=== PATIENT | female | born 1975 | race African-American/Black ===

== ENCOUNTER 2022-05-09 06:02 | Inpatient (IN) | payer OTHER ==
[~2022-05-09] VITALS: Ht 172.7 cm; Wt 47.9 kg
[~2022-05-09 06:02] MED LIST: AMLO-257 PO; AMLO-258 PO; ATOR20TA86 PO; GLIP5TAB12 PO
[2022-05-09 07:02] LABS: BASOPHILS % (AUTO) 0.6 % (0.0-2.0); EOSINOPHILS % (AUTO) 1.3 % (1.0-6.0); HEMATOCRIT 44.6 % (36-46); HEMOGLOBIN 15.4 g/dL (12.0-16.0); LYMPHOCYTES # (AUTO) 1.9 K/uL (1.0-4.8); LYMPHOCYTES % (AUTO) 27.8 % (22.0-44.0); MEAN CORPUSCULAR HGB CONC 34.5 G/dL (31.0-37.0); MEAN CORPUSCULAR VOLUME 90 fL (80-100); MONOCYTES # (AUTO) 0.5 K/uL (0.1-1.0); MONOCYTES % (AUTO) 7.6 % (2.0-9.0); NEUTROPHILS # (AUTO) 4.2 K/uL (1.8-7.7); NEUTROPHILS % (AUTO) 62.7 % (40.0-70.0); PLATELET COUNT (AUTO) 277 K/uL (150-450); RED BLOOD CELL COUNT(AUTO) 4.98 MIL/uL (4.00-5.20); RED CELL DISTRIBUTION WIDTH 13.9 % (11.5-14.5)
[2022-05-09 07:06] LABS: COVID AG,FIA SOURCE NASAL SWAB
[2022-05-09 07:14] LABS: CREATININE 1.34 mg/dL (0.60-1.30); POTASSIUM 3.8 mmol/L (3.5-5.1)
[2022-05-09 07:15] LABS: CALCIUM, TOTAL 9.9 mg/dL (8.8-10.5)
[2022-05-09 07:21] LABS: ALBUMIN 3.9 g/dL (3.4-5.0); BILIRUBIN,TOTAL 0.5 mg/dL (0.1-1.0); TOTAL PROTEIN, SERUM 8.1 g/dL (6.4-8.2)
[2022-05-09 07:37] LABS: LACTIC ACID 0.9 mmol/L (0.4-2.0)
[2022-05-09 07:42] LABS: AMMONIA 10 umol/L (11-32)
[2022-05-09] MEDS ORDERED: DILTIAZEM HCL 5 MG/ML 5 ML VIAL IVP ONE (10:15)
[2022-05-09 10:26] LABS: APPEARANCE,URINE CLEAR (CLEAR); BILIRUBIN,URINE NEGATIVE (NEGATIVE); GLUCOSE, URINE (UA) 150-200 mg/dL (NEGATIVE); LEUKOCYTE ESTERASE ,URINE NEGATIVE (NEGATIVE); NITRATE,URINE NEGATIVE (NEGATIVE); OCCULT BLOOD,URINE NEGATIVE (NEGATIVE); PROTEIN,URINE 300-600,SEE CONFIRM mg/dL (NEGATIVE); SPECIFIC GRAVITIY, URINE 1.029 (1.003-1.030)
[2022-05-09 10:30] LABS: AMPHET/METH SCREEN,URINE NEGATIVE (NEGATIVE); BARBITURATE SCREEN, URINE NEGATIVE (NEGATIVE); BENZODIAZEPINES SCREEN,URINE NEGATIVE (NEGATIVE); CANNABINOID SCREEN,URINE NEGATIVE (NEGATIVE); COCAINE SCREEN,URINE POSITIVE (NEGATIVE); METHADONE SCREEN, URINE NEGATIVE (NEGATIVE); OPIATE SCREEN,URINE NEGATIVE (NEGATIVE)
[2022-05-09 10:31] LABS: BACTERIA,URINE None Seen /HPF (None Seen); PHENCYCLIDINE SCREEN,URINE NEGATIVE (NEGATIVE); RBC,URINE 0-2 /HPF (0-2); SQUAMOUS EPITHELIAL CELL,UR Rare /LPF (None Seen); SULFOSALICYLIC ACID,URINE 3+ (Negative); WBC,URINE 0-2 /HPF (0-5)
[2022-05-09] MEDS ORDERED: ETOMIDATE 2 MG/ML 10 ML VIAL ONE (10:52)
[2022-05-09] MEDS ORDERED: ROCURONIUM BROMIDE 10 MG/ML 5 ML VIAL ONE (10:53)
[2022-05-09] MEDS ORDERED: PROPOFOL 1000 MG/ISO-OSM 100 ML ONE (11:11)
[2022-05-09] MEDS ORDERED: LevETIRAcetam 1,000 MG in DEXTROSE 5%-WATER 100 ML IV ONE (11:15)
[2022-05-09] MEDS: PROPOFOL 1000 MG/ISO-OSM 100 ML IV PRN ×2 (11:30→20:27)
[2022-05-09] MEDS ORDERED: NiCARDipine HCL 25 MG in DEXTROSE 5%-WATER 240 ML IV PRN (11:45)
[2022-05-09 14:14] LABS: ABG BASE EXCESS 1.8 mmol/L (-2.0-3.0); ABG CARBOXYHEMOGLOBIN 0.7 % (0.0-1.5); ABG HCO3 25.4 mmol/L (22.0-26.0); ABG METHEMOGLOBIN 0.2 % (0.0-1.5); ABG OXYGEN SATURATION 96.4 % (95.0-98.0); ABG OXYHEMOGLOBIN 95.5 % (94.0-100.0); ABG PCO2 46 mmHg (35-45); ABG PH 7.388 (7.35-7.450); ABG TOTAL HEMOGLOBIN 17.1 G/dL (12.0-18.0); PO2, ARTERIAL BG 83.4 mmHg (88.0-96.0); SOURCE, BLOOD GAS ARTERIAL; TEMPERATURE, FAHRENHEIT, BG 97.3 FAHREN (96.0-98.6)
[2022-05-09 14:15] LABS: ABG A-A DIFF O2 585.9 mmHg (10-20.0); O2 DEVICE,BLOOD GAS VENTILATOR (ROOM AIR); SITE, BLOOD GAS RT RADIAL; VT, ABG 450 ml
[2022-05-09 14:16] LABS: PEEP,BG 5 cm H2O; SPONTANEOUS VT, BG 446 ml
[2022-05-09] MEDS ORDERED: PIPERACILLIN/TAZO 3.375 GM/D5W 50 ML IV ONE (15:30)
[2022-05-09] MEDS ORDERED: SODIUM CHLORIDE 0.45% 1,000 ML IV ONE (16:00)
[2022-05-09] MEDS ORDERED: LEVE500T20 PO (16:02)
[2022-05-09] MEDS ORDERED: SERT-438 PO (16:02)
[2022-05-09] MEDS ORDERED: METF-1211 PO (16:02)
[2022-05-09] MEDS ORDERED: ALBUTEROL SULFATE 2.5 MG/0.5 ML NEB SOLUTION NEB PRN (17:15)
[2022-05-09] MEDS ORDERED: MAGNESIUM HYDROXIDE SUSPENSION 30 ML UDCUP GT PRN (17:15)
[2022-05-09] MEDS ORDERED: BISACODYL 10 MG RECTAL RECTAL SUPPOSITORY PR PRN (17:15)
[2022-05-09] MEDS ORDERED: IPRATROPIUM BROMIDE 0.5 MG/2.5 ML NEB SOLUTION NEB PRN (17:15)
[2022-05-09 20:00] VITALS: BP_SYST 111; BP_SYST 138; BP_DIAS 104; BP_DIAS 74
[2022-05-09] MEDS: PIPERACILLIN/TAZO 3.375 GM/D5W 50 ML IV SCH (21:35)
[2022-05-09] MEDS: DOCUSATE SODIUM 100 MG/10 ML LIQUID UDCUP GT SCH (21:35)
[2022-05-09] MEDS: ETHYL ALCOHOL 62% ANTISEPTIC NASAL SANITIZER 0.6 ML AMPUL NASAL SCH (21:35)
[2022-05-09] MEDS: ATORVASTATIN CALCIUM 20 MG TABLET GT SCH (21:36)
[2022-05-09] MEDS ORDERED: SODIUM CHLORIDE 0.9% 250 ML IV ONE (22:09)
[2022-05-10] VITALS: BP 110/70
[2022-05-10] MEDS: HEPARIN SODIUM,PORCINE 5,000 UNITS/ML VIAL SQ SCH ×4 (00:43→23:24)
[2022-05-10] MEDS: PROPOFOL 1000 MG/ISO-OSM 100 ML IV PRN ×4 (01:00→13:22)
[2022-05-10 04:00] VITALS: BP 122/83
[2022-05-10] MEDS: PIPERACILLIN/TAZO 3.375 GM/D5W 50 ML IV SCH ×4 (04:34→22:18)
[2022-05-10 08:00] VITALS: BP 137/95
[2022-05-10] MEDS: AmLODIPine BESYLATE 10 MG TABLET GT SCH (08:19)
[2022-05-10] MEDS: DOCUSATE SODIUM 100 MG/10 ML LIQUID UDCUP GT SCH ×2 (08:19→21:00)
[2022-05-10] MEDS: PANTOPRAZOLE SODIUM 40 MG/VIAL IVP SCH (08:19)
[2022-05-10] MEDS: ETHYL ALCOHOL 62% ANTISEPTIC NASAL SANITIZER 0.6 ML AMPUL NASAL SCH ×2 (08:20→22:18)
[2022-05-10] MEDS: SODIUM CHLORIDE 0.45% 1,000 ML IV SCH ×2 (14:35→23:14)
[2022-05-10 14:40] VITALS: BP 137/85
[2022-05-10 16:00] VITALS: BP 124/87
[2022-05-10 17:13] LABS: ABG BASE EXCESS 1.1 mmol/L (-2.0-3.0); ABG CARBOXYHEMOGLOBIN 0.4 % (0.0-1.5); ABG HCO3 25.9 mmol/L (22.0-26.0); ABG METHEMOGLOBIN 0.3 % (0.0-1.5); ABG OXYGEN CONTENT 21.3 mL/dL (15.0-23.0); ABG OXYGEN SATURATION 98.8 % (95.0-98.0); ABG OXYHEMOGLOBIN 98.1 % (94.0-100.0); ABG PCO2 35 mmHg (35-45); ABG TOTAL HEMOGLOBIN 15.3 G/dL (12.0-18.0); PO2, ARTERIAL BG 137.3 mmHg (88.0-96.0); SOURCE, BLOOD GAS ARTERIAL; TEMPERATURE, FAHRENHEIT, BG 98.6 FAHREN (96.0-98.6)
[2022-05-10 17:15] LABS: SITE, BLOOD GAS LFT RADIAL
[2022-05-10 17:16] LABS: ABG A-A DIFF O2 71.8 mmHg (10-20.0); O2 DEVICE,BLOOD GAS VENTILATOR (ROOM AIR)
[2022-05-10 17:17] LABS: PEEP,BG 5 cm H2O; VT, ABG 450 ml
[2022-05-10 20:00] VITALS: BP 127/88
[2022-05-10] MEDS: ATORVASTATIN CALCIUM 20 MG TABLET GT SCH (21:00)
[2022-05-11] VITALS: BP 127/90
[2022-05-11] MEDS: PIPERACILLIN/TAZO 3.375 GM/D5W 50 ML IV SCH (03:39)
[2022-05-11] MEDS: PROPOFOL 1000 MG/ISO-OSM 100 ML IV PRN ×2 (03:39→06:48)
[2022-05-11 04:00] VITALS: BP 144/91
[2022-05-11 05:53] LABS: BASOPHILS % (AUTO) 0.4 % (0.0-2.0); EOSINOPHILS % (AUTO) 1.1 % (1.0-6.0); HEMATOCRIT 40.7 % (36-46); LYMPHOCYTES # (AUTO) 2.2 K/uL (1.0-4.8); LYMPHOCYTES % (AUTO) 17.7 % (22.0-44.0); MEAN CORPUSCULAR HEMOGLOBIN 30.5 pg (26.0-34.0); MEAN CORPUSCULAR HGB CONC 34.3 G/dL (31.0-37.0); MEAN CORPUSCULAR VOLUME 89 fL (80-100); MONOCYTES # (AUTO) 0.6 K/uL (0.1-1.0); MONOCYTES % (AUTO) 4.9 % (2.0-9.0); NEUTROPHILS # (AUTO) 9.5 K/uL (1.8-7.7); NEUTROPHILS % (AUTO) 75.9 % (40.0-70.0); PLATELET COUNT (AUTO) 266 K/uL (150-450); RED BLOOD CELL COUNT(AUTO) 4.57 MIL/uL (4.00-5.20); RED CELL DISTRIBUTION WIDTH 14.1 % (11.5-14.5)
[2022-05-11 05:54] LABS: CALCIUM, TOTAL 9.3 mg/dL (8.8-10.5); CREATININE 2.71 mg/dL (0.60-1.30); POTASSIUM 3.1 mmol/L (3.5-5.1)
[2022-05-11 08:00] VITALS: BP 142/103
[2022-05-11] MEDS: HEPARIN SODIUM,PORCINE 5,000 UNITS/ML VIAL SQ SCH ×2 (08:51→16:24)
[2022-05-11] MEDS: DOCUSATE SODIUM 100 MG/10 ML LIQUID UDCUP GT SCH ×2 (08:51→21:38)
[2022-05-11] MEDS: AmLODIPine BESYLATE 10 MG TABLET GT SCH (08:52)
[2022-05-11] MEDS: ETHYL ALCOHOL 62% ANTISEPTIC NASAL SANITIZER 0.6 ML AMPUL NASAL SCH ×2 (08:52→21:39)
[2022-05-11] MEDS: PANTOPRAZOLE SODIUM 40 MG/VIAL IVP SCH (08:52)
[2022-05-11] MEDS: SODIUM CHLORIDE 0.45% 1,000 ML IV SCH ×2 (08:54→19:16)
[2022-05-11] MEDS ORDERED: POTASSIUM CHLORIDE 10% 40 MEQ/30 ML LIQUID UDCUP NG ONE (09:15)
[2022-05-11] MEDS: ONDANSETRON HCL 4 MG/2 ML VIAL IVP PRN (09:58)
[2022-05-11] MEDS: DEXMEDETOMIDINE HCL 400 MCG in SODIUM CHLORIDE 0.9% 96 ML IV PRN (10:01)
[2022-05-11] MEDS: PIPERACILLIN SODIUM/TAZOBACTAM 2.25 GM in DEXTROSE 5%-WATER 50 ML IV SCH ×3 (10:16→21:40)
[2022-05-11 12:00] VITALS: BP 134/94
[2022-05-11 16:00] VITALS: BP 121/89
[2022-05-11 20:00] VITALS: BP 109/77
[2022-05-11] MEDS: ATORVASTATIN CALCIUM 20 MG TABLET GT SCH (21:38)
[2022-05-12] VITALS: BP 110/76
[2022-05-12] MEDS: HEPARIN SODIUM,PORCINE 5,000 UNITS/ML VIAL SQ SCH ×4 (00:15→23:59)
[2022-05-12] MEDS: DEXMEDETOMIDINE HCL 400 MCG in SODIUM CHLORIDE 0.9% 96 ML IV PRN ×2 (00:16→17:47)
[2022-05-12 04:00] VITALS: BP 114/79
[2022-05-12] MEDS: PIPERACILLIN SODIUM/TAZOBACTAM 2.25 GM in DEXTROSE 5%-WATER 50 ML IV SCH ×4 (04:11→22:05)
[2022-05-12] MEDS: SODIUM CHLORIDE 0.45% 1,000 ML IV SCH ×2 (05:03→16:06)
[2022-05-12 05:43] LABS: BASOPHILS % (AUTO) 0.4 % (0.0-2.0); EOSINOPHILS % (AUTO) 0.9 % (1.0-6.0); HEMATOCRIT 38.5 % (36-46); HEMOGLOBIN 12.9 g/dL (12.0-16.0); LYMPHOCYTES % (AUTO) 21.9 % (22.0-44.0); MEAN CORPUSCULAR HEMOGLOBIN 30.5 pg (26.0-34.0); MEAN CORPUSCULAR HGB CONC 33.5 G/dL (31.0-37.0); MEAN CORPUSCULAR VOLUME 91 fL (80-100); MONOCYTES # (AUTO) 0.7 K/uL (0.1-1.0); MONOCYTES % (AUTO) 7.6 % (2.0-9.0); NEUTROPHILS # (AUTO) 6.5 K/uL (1.8-7.7); NEUTROPHILS % (AUTO) 69.2 % (40.0-70.0); PLATELET COUNT (AUTO) 213 K/uL (150-450); RED BLOOD CELL COUNT(AUTO) 4.23 MIL/uL (4.00-5.20); RED CELL DISTRIBUTION WIDTH 14.4 % (11.5-14.5)
[2022-05-12 05:47] LABS: CALCIUM, TOTAL 8.8 mg/dL (8.8-10.5); CREATININE 2.57 mg/dL (0.60-1.30); POTASSIUM 3.7 mmol/L (3.5-5.1)
[2022-05-12 08:00] VITALS: BP 109/69
[2022-05-12] MEDS: AmLODIPine BESYLATE 10 MG TABLET GT SCH ×2 (09:00→09:34)
[2022-05-12] MEDS: ETHYL ALCOHOL 62% ANTISEPTIC NASAL SANITIZER 0.6 ML AMPUL NASAL SCH ×2 (09:34→19:54)
[2022-05-12] MEDS: PANTOPRAZOLE SODIUM 40 MG/VIAL IVP SCH (09:34)
[2022-05-12] MEDS: DOCUSATE SODIUM 100 MG/10 ML LIQUID UDCUP GT SCH ×2 (09:34→19:53)
[2022-05-12 12:00] VITALS: BP 125/84
[2022-05-12 16:00] VITALS: BP 139/99
[2022-05-12] MEDS: ATORVASTATIN CALCIUM 20 MG TABLET GT SCH (19:54)
[2022-05-12] MEDS: HydrALAZINE HCL 25 MG TABLET NG SCH (20:14)
[2022-05-12] MEDS: CARVEDILOL 3.125 MG TABLET NG SCH (20:44)
[2022-05-12] MEDS: HydrALAZINE HCL 20 MG/ML VIAL IVP PRN (22:43)
[2022-05-13] VITALS: BP 172/89
[2022-05-13] MEDS: HydrALAZINE HCL 20 MG/ML VIAL IVP PRN ×4 (00:54→21:50)
[2022-05-13] MEDS: SODIUM CHLORIDE 0.45% 1,000 ML IV SCH ×3 (02:02→21:53)
[2022-05-13] MEDS: PIPERACILLIN SODIUM/TAZOBACTAM 2.25 GM in DEXTROSE 5%-WATER 50 ML IV SCH ×4 (03:50→21:56)
[2022-05-13 04:00] VITALS: BP 134/80
[2022-05-13] MEDS: DEXMEDETOMIDINE HCL 400 MCG in SODIUM CHLORIDE 0.9% 96 ML IV PRN (05:54)
[2022-05-13 08:00] VITALS: BP 134/86
[2022-05-13] MEDS: HEPARIN SODIUM,PORCINE 5,000 UNITS/ML VIAL SQ SCH ×2 (08:11→16:47)
[2022-05-13] MEDS: ETHYL ALCOHOL 62% ANTISEPTIC NASAL SANITIZER 0.6 ML AMPUL NASAL SCH ×2 (08:12→21:51)
[2022-05-13] MEDS: DOCUSATE SODIUM 100 MG/10 ML LIQUID UDCUP GT SCH ×2 (08:12→21:51)
[2022-05-13] MEDS: AmLODIPine BESYLATE 10 MG TABLET GT SCH (08:12)
[2022-05-13] MEDS: HydrALAZINE HCL 25 MG TABLET NG SCH ×4 (08:12→21:51)
[2022-05-13] MEDS: CARVEDILOL 3.125 MG TABLET NG SCH ×2 (08:12→21:50)
[2022-05-13] MEDS: METOCLOPRAMIDE HCL 5 MG/ML 2 ML VIAL IVP SCH ×2 (08:58→21:51)
[2022-05-13] MEDS: PANTOPRAZOLE SODIUM 40 MG/VIAL IVP SCH (08:58)
[2022-05-13 12:00] VITALS: BP 123/86
[2022-05-13 12:15] LABS: ABG BASE EXCESS -3.1 mmol/L (-2.0-3.0); ABG CARBOXYHEMOGLOBIN 0.6 % (0.0-1.5); ABG HCO3 22.7 mmol/L (22.0-26.0); ABG METHEMOGLOBIN 0.3 % (0.0-1.5); ABG OXYGEN CONTENT 19.1 mL/dL (15.0-23.0); ABG OXYGEN SATURATION 98.5 % (95.0-98.0); ABG OXYHEMOGLOBIN 97.6 % (94.0-100.0); ABG PCO2 32 mmHg (35-45); ABG PH 7.438 (7.35-7.450); ABG TOTAL HEMOGLOBIN 13.8 G/dL (12.0-18.0); PO2, ARTERIAL BG 121.6 mmHg (88.0-96.0); SOURCE, BLOOD GAS ARTERIAL; TEMPERATURE, FAHRENHEIT, BG 98.5 FAHREN (96.0-98.6)
[2022-05-13 12:18] LABS: O2 DEVICE,BLOOD GAS VENTILATOR (ROOM AIR); SITE, BLOOD GAS LFT RADIAL; VT, ABG 450 ml
[2022-05-13 12:19] LABS: PEEP,BG 5 cm H2O; SPONTANEOUS VT, BG 436 ml
[2022-05-13 16:00] VITALS: BP 152/87
[2022-05-13 20:00] VITALS: BP 137/84
[2022-05-13] MEDS: ATORVASTATIN CALCIUM 20 MG TABLET GT SCH (21:51)
[2022-05-14] VITALS (7 sets, daily range): BP systolic 123–160; BP diastolic 68–98
[2022-05-14] MEDS: HEPARIN SODIUM,PORCINE 5,000 UNITS/ML VIAL SQ SCH ×4 (00:39→23:47)
[2022-05-14] MEDS: PIPERACILLIN SODIUM/TAZOBACTAM 2.25 GM in DEXTROSE 5%-WATER 50 ML IV SCH ×4 (04:29→21:39)
[2022-05-14] MEDS: DEXMEDETOMIDINE HCL 400 MCG in SODIUM CHLORIDE 0.9% 96 ML IV PRN (08:12)
[2022-05-14] MEDS: SODIUM CHLORIDE 0.45% 1,000 ML IV SCH ×2 (09:21→17:06)
[2022-05-14] MEDS: DOCUSATE SODIUM 100 MG/10 ML LIQUID UDCUP GT SCH ×2 (09:21→20:21)
[2022-05-14] MEDS: CARVEDILOL 3.125 MG TABLET NG SCH ×2 (09:22→20:23)
[2022-05-14] MEDS: PANTOPRAZOLE SODIUM 40 MG/VIAL IVP SCH (09:22)
[2022-05-14] MEDS: AmLODIPine BESYLATE 10 MG TABLET GT SCH (09:22)
[2022-05-14] MEDS: HydrALAZINE HCL 25 MG TABLET NG SCH ×4 (09:23→20:21)
[2022-05-14] MEDS: METOCLOPRAMIDE HCL 5 MG/ML 2 ML VIAL IVP SCH ×2 (09:23→20:22)
[2022-05-14] MEDS: ETHYL ALCOHOL 62% ANTISEPTIC NASAL SANITIZER 0.6 ML AMPUL NASAL SCH ×2 (09:23→20:21)
[2022-05-14] MEDS: HydrALAZINE HCL 20 MG/ML VIAL IVP PRN ×2 (13:03→20:22)
[2022-05-14] MEDS: ATORVASTATIN CALCIUM 20 MG TABLET GT SCH (20:21)
[2022-05-14 21:15] LABS: GLUCOSE,POINT OF CARE 158 MG/DL (70-110)
[2022-05-14 21:30] LABS: BASOPHILS % (AUTO) 0.3 % (0.0-2.0); EOSINOPHILS % (AUTO) 0.5 % (1.0-6.0); HEMATOCRIT 34.4 % (36-46); HEMOGLOBIN 11.7 g/dL (12.0-16.0); LYMPHOCYTES # (AUTO) 0.9 K/uL (1.0-4.8); LYMPHOCYTES % (AUTO) 7.2 % (22.0-44.0); MEAN CORPUSCULAR HEMOGLOBIN 30.1 pg (26.0-34.0); MEAN CORPUSCULAR HGB CONC 33.9 G/dL (31.0-37.0); MEAN CORPUSCULAR VOLUME 89 fL (80-100); MONOCYTES % (AUTO) 7.9 % (2.0-9.0); NEUTROPHILS # (AUTO) 10.6 K/uL (1.8-7.7); NEUTROPHILS % (AUTO) 84.1 % (40.0-70.0); PLATELET COUNT (AUTO) 250 K/uL (150-450); RED BLOOD CELL COUNT(AUTO) 3.87 MIL/uL (4.00-5.20); RED CELL DISTRIBUTION WIDTH 13.7 % (11.5-14.5)
[2022-05-15] VITALS: BP 134/81
[2022-05-15 04:00] VITALS: BP 152/98
[2022-05-15] MEDS: HydrALAZINE HCL 20 MG/ML VIAL IVP PRN ×2 (04:15→07:57)
[2022-05-15] MEDS: SODIUM CHLORIDE 0.45% 1,000 ML IV SCH ×3 (04:16→22:42)
[2022-05-15] MEDS: PIPERACILLIN SODIUM/TAZOBACTAM 2.25 GM in DEXTROSE 5%-WATER 50 ML IV SCH ×2 (04:16→10:01)
[2022-05-15] MEDS: DEXMEDETOMIDINE HCL 400 MCG in SODIUM CHLORIDE 0.9% 96 ML IV PRN ×2 (04:46→16:28)
[2022-05-15 05:41] LABS: BASOPHILS % (AUTO) 0.3 % (0.0-2.0); EOSINOPHILS % (AUTO) 0.9 % (1.0-6.0); HEMATOCRIT 34.1 % (36-46); HEMOGLOBIN 11.5 g/dL (12.0-16.0); LYMPHOCYTES # (AUTO) 1.8 K/uL (1.0-4.8); LYMPHOCYTES % (AUTO) 15.4 % (22.0-44.0); MEAN CORPUSCULAR HEMOGLOBIN 30.5 pg (26.0-34.0); MEAN CORPUSCULAR HGB CONC 33.8 G/dL (31.0-37.0); MEAN CORPUSCULAR VOLUME 90 fL (80-100); MONOCYTES # (AUTO) 1.3 K/uL (0.1-1.0); MONOCYTES % (AUTO) 10.6 % (2.0-9.0); NEUTROPHILS # (AUTO) 8.6 K/uL (1.8-7.7); NEUTROPHILS % (AUTO) 72.8 % (40.0-70.0); PLATELET COUNT (AUTO) 268 K/uL (150-450); RED BLOOD CELL COUNT(AUTO) 3.77 MIL/uL (4.00-5.20); RED CELL DISTRIBUTION WIDTH 13.7 % (11.5-14.5)
[2022-05-15 05:46] LABS: CALCIUM, TOTAL 9.3 mg/dL (8.8-10.5); CREATININE 1.3 mg/dL (0.60-1.30); POTASSIUM 3.7 mmol/L (3.5-5.1)
[2022-05-15] MEDS: HEPARIN SODIUM,PORCINE 5,000 UNITS/ML VIAL SQ SCH ×3 (07:31→22:43)
[2022-05-15 08:00] VITALS: BP 149/94
[2022-05-15] MEDS: AmLODIPine BESYLATE 10 MG TABLET GT SCH (09:15)
[2022-05-15] MEDS: ETHYL ALCOHOL 62% ANTISEPTIC NASAL SANITIZER 0.6 ML AMPUL NASAL SCH ×2 (09:15→20:20)
[2022-05-15] MEDS: CARVEDILOL 3.125 MG TABLET NG SCH ×2 (09:15→20:20)
[2022-05-15] MEDS: PANTOPRAZOLE SODIUM 40 MG/VIAL IVP SCH ×2 (09:16→20:19)
[2022-05-15] MEDS: METOCLOPRAMIDE HCL 5 MG/ML 2 ML VIAL IVP SCH ×2 (09:16→20:20)
[2022-05-15] MEDS: HydrALAZINE HCL 25 MG TABLET NG SCH ×4 (10:36→20:20)
[2022-05-15] MEDS: DOCUSATE SODIUM 100 MG/10 ML LIQUID UDCUP GT SCH ×2 (10:36→20:19)
[2022-05-15 12:00] VITALS: BP 122/80
[2022-05-15 16:00] VITALS: BP 113/59
[2022-05-15] MEDS: PIPERACILLIN/TAZO 3.375 GM/D5W 50 ML IV SCH ×2 (16:25→21:43)
[2022-05-15 20:00] VITALS: BP 137/92
[2022-05-15] MEDS: ATORVASTATIN CALCIUM 20 MG TABLET GT SCH (20:19)
[2022-05-16] VITALS: BP_SYST 151; BP_SYST 152; BP_DIAS 110
[2022-05-16] MEDS: DEXMEDETOMIDINE HCL 400 MCG in SODIUM CHLORIDE 0.9% 96 ML IV PRN ×3 (01:18→18:10)
[2022-05-16] MEDS: PIPERACILLIN/TAZO 3.375 GM/D5W 50 ML IV SCH ×4 (03:34→21:42)
[2022-05-16 04:00] VITALS: BP_SYST 144; BP_SYST 146; BP_DIAS 96
[2022-05-16 05:51] LABS: HEMOGLOBIN A1C 6.6 % (3.8-5.6)
[2022-05-16 06:03] LABS: BILIRUBIN,TOTAL 0.3 mg/dL (0.1-1.0); CALCIUM, TOTAL 8.8 mg/dL (8.8-10.5); CREATININE 1.24 mg/dL (0.60-1.30); POTASSIUM 3.3 mmol/L (3.5-5.1); TOTAL PROTEIN, SERUM 5.7 g/dL (6.4-8.2)
[2022-05-16 08:00] VITALS: BP 140/97
[2022-05-16] MEDS: HEPARIN SODIUM,PORCINE 5,000 UNITS/ML VIAL SQ SCH ×2 (08:00→16:00)
[2022-05-16] MEDS: PANTOPRAZOLE SODIUM 40 MG/VIAL IVP SCH ×2 (08:11→20:20)
[2022-05-16] MEDS: AmLODIPine BESYLATE 10 MG TABLET GT SCH (08:12)
[2022-05-16] MEDS: DOCUSATE SODIUM 100 MG/10 ML LIQUID UDCUP GT SCH ×2 (08:12→20:19)
[2022-05-16] MEDS: CARVEDILOL 3.125 MG TABLET NG SCH ×2 (08:12→20:22)
[2022-05-16] MEDS: METOCLOPRAMIDE HCL 5 MG/ML 2 ML VIAL IVP SCH ×2 (08:12→20:19)
[2022-05-16] MEDS: ETHYL ALCOHOL 62% ANTISEPTIC NASAL SANITIZER 0.6 ML AMPUL NASAL SCH ×2 (08:13→20:20)
[2022-05-16] MEDS: HydrALAZINE HCL 25 MG TABLET NG SCH ×5 (08:13→21:47)
[2022-05-16] MEDS: POTASSIUM CHL 10 MEQ/WATER 50 ML IV SCH ×3 (09:33→12:43)
[2022-05-16] MEDS: SODIUM CHLORIDE 0.45% 1,000 ML IV SCH ×2 (09:33→20:19)
[2022-05-16 12:00] VITALS: BP 141/93
[2022-05-16 18:00] VITALS: BP 156/109
[2022-05-16] MEDS: HydrALAZINE HCL 20 MG/ML VIAL IVP PRN (18:10)
[2022-05-16 20:00] VITALS: BP 131/75
[2022-05-16] MEDS: ATORVASTATIN CALCIUM 20 MG TABLET GT SCH (20:20)
[2022-05-16] MEDS: PROPOFOL 1000 MG/ISO-OSM 100 ML IV PRN (21:28)
[2022-05-17] VITALS: BP 138/91
[2022-05-17] MEDS ORDERED: SODIUM CHLORIDE 0.9% 250 ML IV ONE (03:27)
[2022-05-17 04:00] VITALS: BP 145/75
[2022-05-17] MEDS: PIPERACILLIN/TAZO 3.375 GM/D5W 50 ML IV SCH ×4 (04:09→21:07)
[2022-05-17] MEDS: DEXMEDETOMIDINE HCL 400 MCG in SODIUM CHLORIDE 0.9% 96 ML IV PRN ×2 (04:09→23:14)
[2022-05-17 05:15] LABS: BASOPHILS % (AUTO) 0.7 % (0.0-2.0); EOSINOPHILS % (AUTO) 3.7 % (1.0-6.0); HEMATOCRIT 26.1 % (36-46); LYMPHOCYTES # (AUTO) 1.6 K/uL (1.0-4.8); LYMPHOCYTES % (AUTO) 21.8 % (22.0-44.0); MEAN CORPUSCULAR HEMOGLOBIN 30.8 pg (26.0-34.0); MEAN CORPUSCULAR HGB CONC 34.5 G/dL (31.0-37.0); MEAN CORPUSCULAR VOLUME 89 fL (80-100); MONOCYTES # (AUTO) 0.8 K/uL (0.1-1.0); MONOCYTES % (AUTO) 10.9 % (2.0-9.0); NEUTROPHILS # (AUTO) 4.6 K/uL (1.8-7.7); NEUTROPHILS % (AUTO) 62.9 % (40.0-70.0); PLATELET COUNT (AUTO) 173 K/uL (150-450); RED BLOOD CELL COUNT(AUTO) 2.93 MIL/uL (4.00-5.20); RED CELL DISTRIBUTION WIDTH 13.4 % (11.5-14.5)
[2022-05-17] MEDS: SODIUM CHLORIDE 0.45% 1,000 ML IV SCH ×2 (05:28→15:17)
[2022-05-17 05:34] LABS: ALANINE AMINOTRANSFERASE 26 U/L (12-78); ALBUMIN 2.1 g/dL (3.4-5.0); ALKALINE PHOSPHATASE 44 U/L (46-116); ANION GAP 10 mmol/L (8-16); ASPARTATE AMINOTRANSFERASE 29 U/L (15-37); BILIRUBIN,TOTAL 0.4 mg/dL (0.1-1.0); CARBON DIOXIDE 22 mmol/L (22-29); CHLORIDE 104 mmol/L (98-107); CREATININE 0.91 mg/dL (0.60-1.30); GLOMERULAR FILTR. RATE CALC > 60 mL/min (>60); GLUCOSE,RANDOM 152 mg/dL (70-110); POTASSIUM 3.4 mmol/L (3.5-5.1); SODIUM SERUM 136 mmol/L (136-145); TOTAL PROTEIN, SERUM 5.8 g/dL (6.4-8.2); UREA NITROGEN, BLOOD 25 mg/dL (7-18)
[2022-05-17 08:00] VITALS: BP 115/62
[2022-05-17] MEDS: DOCUSATE SODIUM 100 MG/10 ML LIQUID UDCUP GT SCH ×2 (08:19→21:05)
[2022-05-17] MEDS: ETHYL ALCOHOL 62% ANTISEPTIC NASAL SANITIZER 0.6 ML AMPUL NASAL SCH ×2 (08:20→21:06)
[2022-05-17] MEDS: HydrALAZINE HCL 25 MG TABLET NG SCH ×4 (08:20→21:05)
[2022-05-17] MEDS: METOCLOPRAMIDE HCL 5 MG/ML 2 ML VIAL IVP SCH ×2 (08:20→21:05)
[2022-05-17] MEDS: ASPIRIN 81 MG CHEWABLE TABLET PO SCH (08:20)
[2022-05-17] MEDS: HEPARIN SODIUM,PORCINE 5,000 UNITS/ML VIAL SQ SCH ×3 (08:20→15:11)
[2022-05-17] MEDS: AmLODIPine BESYLATE 10 MG TABLET GT SCH (08:20)
[2022-05-17] MEDS: ATORVASTATIN CALCIUM 40 MG TABLET PO SCH (08:20)
[2022-05-17] MEDS: CARVEDILOL 3.125 MG TABLET NG SCH ×2 (08:20→21:06)
[2022-05-17] MEDS: PANTOPRAZOLE SODIUM 40 MG/VIAL IVP SCH ×2 (08:21→21:05)
[2022-05-17] MEDS: HydrALAZINE HCL 20 MG/ML VIAL IVP PRN (11:25)
[2022-05-17 12:00] VITALS: BP 156/90
[2022-05-17] MEDS ORDERED: MAGNESIUM SULFATE 2 GM/WATER 50 ML IV ONE (12:45)
[2022-05-17] MEDS ORDERED: POTASSIUM CHLORIDE 10% 40 MEQ/30 ML LIQUID UDCUP NG ONE (12:45)
[2022-05-17 16:00] VITALS: BP 92/61
[2022-05-17 20:00] VITALS: BP 107/72
[2022-05-18] VITALS: BP 136/87
[2022-05-18] MEDS: SODIUM CHLORIDE 0.45% 1,000 ML IV SCH (02:54)
[2022-05-18 04:00] VITALS: BP 125/75
[2022-05-18] MEDS: PIPERACILLIN/TAZO 3.375 GM/D5W 50 ML IV SCH ×4 (04:26→21:28)
[2022-05-18 05:52] LABS: BASOPHILS % (AUTO) 0.3 % (0.0-2.0); EOSINOPHILS % (AUTO) 3.1 % (1.0-6.0); HEMATOCRIT 25.8 % (36-46); LYMPHOCYTES # (AUTO) 1.4 K/uL (1.0-4.8); LYMPHOCYTES % (AUTO) 16.4 % (22.0-44.0); MEAN CORPUSCULAR HEMOGLOBIN 30.9 pg (26.0-34.0); MEAN CORPUSCULAR HGB CONC 35.1 G/dL (31.0-37.0); MEAN CORPUSCULAR VOLUME 88 fL (80-100); MONOCYTES # (AUTO) 0.6 K/uL (0.1-1.0); MONOCYTES % (AUTO) 7.5 % (2.0-9.0); NEUTROPHILS # (AUTO) 6.2 K/uL (1.8-7.7); NEUTROPHILS % (AUTO) 72.7 % (40.0-70.0); PLATELET COUNT (AUTO) 205 K/uL (150-450); RED BLOOD CELL COUNT(AUTO) 2.93 MIL/uL (4.00-5.20); RED CELL DISTRIBUTION WIDTH 13.6 % (11.5-14.5)
[2022-05-18 06:16] LABS: ALANINE AMINOTRANSFERASE 23 U/L (12-78); ALBUMIN 2.2 g/dL (3.4-5.0); ALKALINE PHOSPHATASE 49 U/L (46-116); ANION GAP 13 mmol/L (8-16); ASPARTATE AMINOTRANSFERASE 20 U/L (15-37); BILIRUBIN,TOTAL 0.3 mg/dL (0.1-1.0); CALCIUM, TOTAL 8.8 mg/dL (8.8-10.5); CARBON DIOXIDE 21 mmol/L (22-29); CHLORIDE 102 mmol/L (98-107); CREATININE 1.04 mg/dL (0.60-1.30); GLUCOSE,RANDOM 158 mg/dL (70-110); PHOSPHORUS 2.4 mg/dL (2.5-4.9); POTASSIUM 3.7 mmol/L (3.5-5.1); SODIUM SERUM 136 mmol/L (136-145); TOTAL PROTEIN, SERUM 5.8 g/dL (6.4-8.2); UREA NITROGEN, BLOOD 19 mg/dL (7-18)
[2022-05-18 06:22] LABS: GLOMERULAR FILTR. RATE CALC > 60 mL/min (>60)
[2022-05-18] MEDS: DEXMEDETOMIDINE HCL 400 MCG in SODIUM CHLORIDE 0.9% 96 ML IV PRN (07:28)
[2022-05-18 08:00] VITALS: BP 138/90
[2022-05-18] MEDS: HEPARIN SODIUM,PORCINE 5,000 UNITS/ML VIAL SQ SCH ×3 (08:00→15:08)
[2022-05-18] MEDS: PANTOPRAZOLE SODIUM 40 MG/VIAL IVP SCH ×2 (09:00→20:32)
[2022-05-18] MEDS: DOCUSATE SODIUM 100 MG/10 ML LIQUID UDCUP GT SCH ×2 (09:22→20:32)
[2022-05-18] MEDS: MAGNESIUM SULFATE 1 GM in DEXTROSE 5%-WATER 50 ML IV SCH (09:22)
[2022-05-18] MEDS: AmLODIPine BESYLATE 10 MG TABLET GT SCH (09:23)
[2022-05-18] MEDS: POTASSIUM CHLORIDE 10% 40 MEQ/30 ML LIQUID UDCUP NG SCH (09:24)
[2022-05-18] MEDS: HydrALAZINE HCL 25 MG TABLET NG SCH ×4 (09:24→20:30)
[2022-05-18] MEDS: ATORVASTATIN CALCIUM 40 MG TABLET PO SCH (09:24)
[2022-05-18] MEDS: CARVEDILOL 3.125 MG TABLET NG SCH ×2 (09:24→20:30)
[2022-05-18] MEDS: METOCLOPRAMIDE HCL 5 MG/ML 2 ML VIAL IVP SCH ×2 (09:25→20:30)
[2022-05-18] MEDS: ASPIRIN 81 MG CHEWABLE TABLET PO SCH (09:25)
[2022-05-18] MEDS: ETHYL ALCOHOL 62% ANTISEPTIC NASAL SANITIZER 0.6 ML AMPUL NASAL SCH ×2 (09:26→20:30)
[2022-05-18] MEDS ORDERED: POTASSIUM PHOS,M-BASIC-D-BASIC 10 MEQ in DEXTROSE 5%-WATER 50 ML IV ONE (10:15)
[2022-05-18 12:00] VITALS: BP 152/86
[2022-05-18 13:18] LABS: ABG BASE EXCESS -4.3 mmol/L (-2.0-3.0); ABG CARBOXYHEMOGLOBIN 0.3 % (0.0-1.5); ABG HCO3 21.4 mmol/L (22.0-26.0); ABG METHEMOGLOBIN 0.3 % (0.0-1.5); ABG OXYGEN CONTENT 14.2 mL/dL (15.0-23.0); ABG OXYGEN SATURATION 98.7 % (95.0-98.0); ABG OXYHEMOGLOBIN 98.1 % (94.0-100.0); ABG PCO2 32 mmHg (35-45); ABG PH 7.415 (7.35-7.450); ABG TOTAL HEMOGLOBIN 10.1 G/dL (12.0-18.0); PO2, ARTERIAL BG 144.6 mmHg (88.0-96.0); SOURCE, BLOOD GAS ARTERIAL; TEMPERATURE, FAHRENHEIT, BG 97.5 FAHREN (96.0-98.6)
[2022-05-18 13:19] LABS: ABG A-A DIFF O2 31.7 mmHg (10-20.0); SITE, BLOOD GAS LFT RADIAL
[2022-05-18 13:20] LABS: O2 DEVICE,BLOOD GAS VENTILATOR (ROOM AIR); VENT MODE, BG Press. Support Vent. (ROOM AIR); VT, ABG 367 ml
[2022-05-18 13:21] LABS: PEEP,BG 5 cm H2O; PRESSURE SUPPORT, BG 8 cm H2O
[2022-05-18] MEDS ORDERED: SODIUM CHLORIDE 0.9% 250 ML IV ONE (14:01)
[2022-05-18 16:00] VITALS: BP 161/91
[2022-05-18] MEDS: HydrALAZINE HCL 20 MG/ML VIAL IVP PRN ×3 (17:54→21:28)
[2022-05-18 20:00] VITALS: BP 214/112
[2022-05-18] MEDS: ONDANSETRON HCL 4 MG/2 ML VIAL IVP PRN (20:52)
[2022-05-18] MEDS: PROPOFOL 1000 MG/ISO-OSM 100 ML IV PRN (21:58)
[2022-05-19] VITALS: BP 150/89
[2022-05-19] MEDS: PROPOFOL 1000 MG/ISO-OSM 100 ML IV PRN ×3 (03:09→23:23)
[2022-05-19 04:00] VITALS: BP 125/75
[2022-05-19] MEDS: PIPERACILLIN/TAZO 3.375 GM/D5W 50 ML IV SCH ×4 (04:01→22:39)
[2022-05-19] MEDS: DEXMEDETOMIDINE HCL 400 MCG in SODIUM CHLORIDE 0.9% 96 ML IV PRN ×2 (04:01→14:14)
[2022-05-19 05:52] LABS: ANION GAP 9 mmol/L (8-16); CALCIUM, TOTAL 9.1 mg/dL (8.8-10.5); CARBON DIOXIDE 25 mmol/L (22-29); CHLORIDE 104 mmol/L (98-107); CREATININE 0.95 mg/dL (0.60-1.30); GLUCOSE,RANDOM 141 mg/dL (70-110); PHOSPHORUS 2.5 mg/dL (2.5-4.9); POTASSIUM 3.1 mmol/L (3.5-5.1); SODIUM SERUM 138 mmol/L (136-145); UREA NITROGEN, BLOOD 15 mg/dL (7-18)
[2022-05-19 05:54] LABS: GLOMERULAR FILTR. RATE CALC > 60 mL/min (>60)
[2022-05-19 08:00] VITALS: BP 145/90
[2022-05-19] MEDS: HEPARIN SODIUM,PORCINE 5,000 UNITS/ML VIAL SQ SCH ×2 (08:00)
[2022-05-19] MEDS: MAGNESIUM SULFATE 1 GM in DEXTROSE 5%-WATER 50 ML IV SCH (08:09)
[2022-05-19] MEDS: AmLODIPine BESYLATE 10 MG TABLET GT SCH (08:10)
[2022-05-19] MEDS: PANTOPRAZOLE SODIUM 40 MG/VIAL IVP SCH (08:10)
[2022-05-19] MEDS: DOCUSATE SODIUM 100 MG/10 ML LIQUID UDCUP GT SCH ×2 (08:10→20:42)
[2022-05-19] MEDS: ETHYL ALCOHOL 62% ANTISEPTIC NASAL SANITIZER 0.6 ML AMPUL NASAL SCH ×2 (08:11→20:37)
[2022-05-19] MEDS: POTASSIUM CHLORIDE 10% 40 MEQ/30 ML LIQUID UDCUP NG SCH (08:11)
[2022-05-19] MEDS: CARVEDILOL 3.125 MG TABLET NG SCH ×2 (08:11→20:37)
[2022-05-19] MEDS: HydrALAZINE HCL 25 MG TABLET NG SCH ×4 (08:11→20:42)
[2022-05-19] MEDS: ASPIRIN 81 MG CHEWABLE TABLET PO SCH (08:11)
[2022-05-19] MEDS: METOCLOPRAMIDE HCL 5 MG/ML 2 ML VIAL IVP SCH ×2 (08:11→20:37)
[2022-05-19] MEDS: ATORVASTATIN CALCIUM 40 MG TABLET PO SCH (08:12)
[2022-05-19] MEDS: PANTOPRAZOLE SODIUM 80 MG in SODIUM CHLORIDE 0.9% 100 ML IV SCH ×2 (10:29→20:37)
[2022-05-19 11:38] LABS: BASOPHILS % (AUTO) 0.4 % (0.0-2.0); EOSINOPHILS % (AUTO) 0.7 % (1.0-6.0); HEMATOCRIT 27.2 % (36-46); HEMOGLOBIN 9.5 g/dL (12.0-16.0); LYMPHOCYTES # (AUTO) 1.1 K/uL (1.0-4.8); LYMPHOCYTES % (AUTO) 11.5 % (22.0-44.0); MEAN CORPUSCULAR HGB CONC 34.9 G/dL (31.0-37.0); MEAN CORPUSCULAR VOLUME 89 fL (80-100); MONOCYTES # (AUTO) 0.7 K/uL (0.1-1.0); NEUTROPHILS # (AUTO) 7.8 K/uL (1.8-7.7); NEUTROPHILS % (AUTO) 80.4 % (40.0-70.0); PLATELET COUNT (AUTO) 264 K/uL (150-450); RED BLOOD CELL COUNT(AUTO) 3.07 MIL/uL (4.00-5.20); RED CELL DISTRIBUTION WIDTH 13.5 % (11.5-14.5)
[2022-05-19 12:00] VITALS: BP 126/74
[2022-05-19 16:00] VITALS: BP 153/94
[2022-05-19 20:00] VITALS: BP 107/69
[2022-05-19] MEDS ORDERED: SODIUM CHLORIDE 0.9% 250 ML IV ONE (23:37)
[2022-05-20] VITALS: BP 125/75
[2022-05-20] MEDS: DEXMEDETOMIDINE HCL 400 MCG in SODIUM CHLORIDE 0.9% 96 ML IV PRN ×2 (02:37→15:06)
[2022-05-20 04:00] VITALS: BP 137/91
[2022-05-20] MEDS: PIPERACILLIN/TAZO 3.375 GM/D5W 50 ML IV SCH ×4 (04:15→21:52)
[2022-05-20] MEDS: PROPOFOL 1000 MG/ISO-OSM 100 ML IV PRN ×2 (04:16→21:51)
[2022-05-20] MEDS: PANTOPRAZOLE SODIUM 80 MG in SODIUM CHLORIDE 0.9% 100 ML IV SCH ×2 (05:57→15:55)
[2022-05-20 06:13] LABS: PHOSPHORUS 2.9 mg/dL (2.5-4.9); POTASSIUM 3.5 mmol/L (3.5-5.1)
[2022-05-20 08:00] VITALS: BP 151/96
[2022-05-20 08:30] LABS: BASOPHILS % (AUTO) 0.8 % (0.0-2.0); EOSINOPHILS % (AUTO) 2.5 % (1.0-6.0); HEMATOCRIT 24.8 % (36-46); HEMOGLOBIN 8.6 g/dL (12.0-16.0); LYMPHOCYTES # (AUTO) 1.6 K/uL (1.0-4.8); LYMPHOCYTES % (AUTO) 21.7 % (22.0-44.0); MEAN CORPUSCULAR HEMOGLOBIN 30.9 pg (26.0-34.0); MEAN CORPUSCULAR HGB CONC 34.6 G/dL (31.0-37.0); MEAN CORPUSCULAR VOLUME 89 fL (80-100); MONOCYTES # (AUTO) 0.6 K/uL (0.1-1.0); MONOCYTES % (AUTO) 8.2 % (2.0-9.0); NEUTROPHILS # (AUTO) 4.9 K/uL (1.8-7.7); NEUTROPHILS % (AUTO) 66.8 % (40.0-70.0); PLATELET COUNT (AUTO) 257 K/uL (150-450); RED BLOOD CELL COUNT(AUTO) 2.78 MIL/uL (4.00-5.20); RED CELL DISTRIBUTION WIDTH 13.6 % (11.5-14.5)
[2022-05-20] MEDS: MAGNESIUM SULFATE 1 GM in DEXTROSE 5%-WATER 50 ML IV SCH (08:31)
[2022-05-20] MEDS: DOCUSATE SODIUM 100 MG/10 ML LIQUID UDCUP GT SCH ×2 (08:31→21:00)
[2022-05-20] MEDS: ETHYL ALCOHOL 62% ANTISEPTIC NASAL SANITIZER 0.6 ML AMPUL NASAL SCH ×2 (08:32→21:52)
[2022-05-20] MEDS: AmLODIPine BESYLATE 10 MG TABLET GT SCH (08:32)
[2022-05-20] MEDS: METOCLOPRAMIDE HCL 5 MG/ML 2 ML VIAL IVP SCH ×2 (08:32→21:51)
[2022-05-20] MEDS: HydrALAZINE HCL 25 MG TABLET NG SCH ×4 (08:32→21:52)
[2022-05-20] MEDS: POTASSIUM CHLORIDE 10% 40 MEQ/30 ML LIQUID UDCUP NG SCH (08:33)
[2022-05-20] MEDS: ATORVASTATIN CALCIUM 40 MG TABLET PO SCH (08:33)
[2022-05-20] MEDS: CARVEDILOL 3.125 MG TABLET NG SCH ×2 (08:33→21:52)
[2022-05-20] MEDS ORDERED: SODIUM CHLORIDE 0.9% 250 ML IV ONE (08:37)
[2022-05-20 10:05] LABS: ANION GAP 14 mmol/L (8-16); CALCIUM, TOTAL 9.2 mg/dL (8.8-10.5); CARBON DIOXIDE 21 mmol/L (22-29); CHLORIDE 105 mmol/L (98-107); CREATININE 1.16 mg/dL (0.60-1.30); GLUCOSE,RANDOM 146 mg/dL (70-110); SODIUM SERUM 140 mmol/L (136-145); UREA NITROGEN, BLOOD 14 mg/dL (7-18)
[2022-05-20 10:06] LABS: GLOMERULAR FILTR. RATE CALC > 60 mL/min (>60)
[2022-05-20 12:00] VITALS: BP 146/91
[2022-05-20 16:00] VITALS: BP 127/87
[2022-05-20 20:00] VITALS: BP 171/122
[2022-05-21] VITALS: BP 122/86
[2022-05-21] MEDS: DEXMEDETOMIDINE HCL 400 MCG in SODIUM CHLORIDE 0.9% 96 ML IV PRN ×2 (00:41→13:42)
[2022-05-21] MEDS: PANTOPRAZOLE SODIUM 80 MG in SODIUM CHLORIDE 0.9% 100 ML IV SCH ×2 (02:31→13:51)
[2022-05-21] MEDS: PIPERACILLIN/TAZO 3.375 GM/D5W 50 ML IV SCH ×4 (03:58→21:11)
[2022-05-21] MEDS: PROPOFOL 1000 MG/ISO-OSM 100 ML IV PRN ×3 (03:58→22:17)
[2022-05-21 04:00] VITALS: BP 112/78
[2022-05-21 08:00] VITALS: BP 111/80
[2022-05-21] MEDS: ETHYL ALCOHOL 62% ANTISEPTIC NASAL SANITIZER 0.6 ML AMPUL NASAL SCH ×2 (08:40→21:06)
[2022-05-21] MEDS: DOCUSATE SODIUM 100 MG/10 ML LIQUID UDCUP GT SCH ×2 (08:41→21:00)
[2022-05-21] MEDS: CARVEDILOL 3.125 MG TABLET NG SCH ×2 (08:42→21:07)
[2022-05-21] MEDS: HydrALAZINE HCL 25 MG TABLET NG SCH ×4 (08:42→21:07)
[2022-05-21] MEDS: METOCLOPRAMIDE HCL 5 MG/ML 2 ML VIAL IVP SCH ×2 (08:42→21:06)
[2022-05-21] MEDS: ATORVASTATIN CALCIUM 40 MG TABLET PO SCH (08:42)
[2022-05-21] MEDS: AmLODIPine BESYLATE 10 MG TABLET GT SCH (08:43)
[2022-05-21 12:00] VITALS: BP 123/78
[2022-05-21 16:00] VITALS: BP 151/94
[2022-05-21 20:00] VITALS: BP 141/95
[2022-05-21] MEDS ORDERED: SODIUM CHLORIDE 0.9% 250 ML IV ONE (20:58)
[2022-05-22] VITALS: BP 99/69
[2022-05-22] MEDS: PANTOPRAZOLE SODIUM 80 MG in SODIUM CHLORIDE 0.9% 100 ML IV SCH ×3 (00:07→19:37)
[2022-05-22] MEDS: DEXMEDETOMIDINE HCL 400 MCG in SODIUM CHLORIDE 0.9% 96 ML IV PRN ×2 (02:11→18:38)
[2022-05-22 04:00] VITALS: BP 122/84
[2022-05-22] MEDS: PIPERACILLIN/TAZO 3.375 GM/D5W 50 ML IV SCH ×4 (04:17→21:31)
[2022-05-22 05:29] LABS: BASOPHILS % (AUTO) 0.7 % (0.0-2.0); EOSINOPHILS % (AUTO) 2.3 % (1.0-6.0); HEMATOCRIT 25.6 % (36-46); LYMPHOCYTES # (AUTO) 1.4 K/uL (1.0-4.8); LYMPHOCYTES % (AUTO) 16.8 % (22.0-44.0); MEAN CORPUSCULAR HEMOGLOBIN 31.1 pg (26.0-34.0); MEAN CORPUSCULAR HGB CONC 35.3 G/dL (31.0-37.0); MEAN CORPUSCULAR VOLUME 88 fL (80-100); MONOCYTES # (AUTO) 0.6 K/uL (0.1-1.0); MONOCYTES % (AUTO) 6.9 % (2.0-9.0); NEUTROPHILS # (AUTO) 5.9 K/uL (1.8-7.7); NEUTROPHILS % (AUTO) 73.3 % (40.0-70.0); PLATELET COUNT (AUTO) 312 K/uL (150-450); RED CELL DISTRIBUTION WIDTH 13.5 % (11.5-14.5)
[2022-05-22 05:44] LABS: ALANINE AMINOTRANSFERASE 18 U/L (12-78); ALBUMIN 2.3 g/dL (3.4-5.0); ALKALINE PHOSPHATASE 69 U/L (46-116); ANION GAP 13 mmol/L (8-16); ASPARTATE AMINOTRANSFERASE 18 U/L (15-37); BILIRUBIN,TOTAL 0.3 mg/dL (0.1-1.0); CALCIUM, TOTAL 8.7 mg/dL (8.8-10.5); CARBON DIOXIDE 22 mmol/L (22-29); CHLORIDE 104 mmol/L (98-107); CREATININE 1.11 mg/dL (0.60-1.30); GLOMERULAR FILTR. RATE CALC > 60 mL/min (>60); GLUCOSE,RANDOM 178 mg/dL (70-110); POTASSIUM 3.6 mmol/L (3.5-5.1); SODIUM SERUM 139 mmol/L (136-145); TOTAL PROTEIN, SERUM 6.4 g/dL (6.4-8.2); UREA NITROGEN, BLOOD 15 mg/dL (7-18)
[2022-05-22 08:00] VITALS: BP 120/85
[2022-05-22] MEDS: DOCUSATE SODIUM 100 MG/10 ML LIQUID UDCUP GT SCH ×2 (08:18→21:00)
[2022-05-22] MEDS: AmLODIPine BESYLATE 10 MG TABLET GT SCH (08:18)
[2022-05-22] MEDS: ATORVASTATIN CALCIUM 40 MG TABLET PO SCH (08:19)
[2022-05-22] MEDS: HydrALAZINE HCL 25 MG TABLET NG SCH ×4 (08:19→21:30)
[2022-05-22] MEDS: METOCLOPRAMIDE HCL 5 MG/ML 2 ML VIAL IVP SCH ×2 (08:19→21:30)
[2022-05-22] MEDS: ETHYL ALCOHOL 62% ANTISEPTIC NASAL SANITIZER 0.6 ML AMPUL NASAL SCH ×2 (08:19→21:30)
[2022-05-22] MEDS: CARVEDILOL 3.125 MG TABLET NG SCH ×2 (08:19→21:30)
[2022-05-22 12:00] VITALS: BP 134/89
[2022-05-22 12:22] LABS: INR 1.1 (0.9-1.1); PROTHROMBIN TIME 11.3 SEC (9.4-11.6)
[2022-05-22 16:00] VITALS: BP 137/97
[2022-05-22 20:00] VITALS: BP 136/90
[2022-05-22] MEDS ORDERED: SODIUM CHLORIDE 0.9% 250 ML IV ONE (21:28)
[2022-05-23] VITALS: BP 128/88
[2022-05-23] MEDS: PIPERACILLIN/TAZO 3.375 GM/D5W 50 ML IV SCH ×2 (02:59→11:01)
[2022-05-23] MEDS: PROPOFOL 1000 MG/ISO-OSM 100 ML IV PRN ×3 (02:59→22:51)
[2022-05-23 04:00] VITALS: BP 138/95
[2022-05-23 05:21] LABS: BASOPHILS % (AUTO) 0.6 % (0.0-2.0); EOSINOPHILS % (AUTO) 2.4 % (1.0-6.0); HEMATOCRIT 28.4 % (36-46); HEMOGLOBIN 9.8 g/dL (12.0-16.0); LYMPHOCYTES % (AUTO) 10.8 % (22.0-44.0); MEAN CORPUSCULAR HEMOGLOBIN 30.6 pg (26.0-34.0); MEAN CORPUSCULAR HGB CONC 34.4 G/dL (31.0-37.0); MEAN CORPUSCULAR VOLUME 89 fL (80-100); MONOCYTES # (AUTO) 0.5 K/uL (0.1-1.0); MONOCYTES % (AUTO) 5.4 % (2.0-9.0); NEUTROPHILS # (AUTO) 7.2 K/uL (1.8-7.7); NEUTROPHILS % (AUTO) 80.8 % (40.0-70.0); PLATELET COUNT (AUTO) 346 K/uL (150-450); RED BLOOD CELL COUNT(AUTO) 3.19 MIL/uL (4.00-5.20); RED CELL DISTRIBUTION WIDTH 13.9 % (11.5-14.5)
[2022-05-23 05:51] LABS: ALANINE AMINOTRANSFERASE 17 U/L (12-78); ALBUMIN 2.5 g/dL (3.4-5.0); ALKALINE PHOSPHATASE 72 U/L (46-116); ANION GAP 12 mmol/L (8-16); ASPARTATE AMINOTRANSFERASE 19 U/L (15-37); BILIRUBIN,TOTAL 0.3 mg/dL (0.1-1.0); CALCIUM, TOTAL 8.8 mg/dL (8.8-10.5); CARBON DIOXIDE 22 mmol/L (22-29); CHLORIDE 102 mmol/L (98-107); CREATININE 1.13 mg/dL (0.60-1.30); GLUCOSE,RANDOM 165 mg/dL (70-110); POTASSIUM 3.6 mmol/L (3.5-5.1); SODIUM SERUM 136 mmol/L (136-145); TOTAL PROTEIN, SERUM 6.8 g/dL (6.4-8.2); UREA NITROGEN, BLOOD 15 mg/dL (7-18)
[2022-05-23 05:52] LABS: GLOMERULAR FILTR. RATE CALC > 60 mL/min (>60)
[2022-05-23] MEDS: PANTOPRAZOLE SODIUM 80 MG in SODIUM CHLORIDE 0.9% 100 ML IV SCH ×2 (06:07→17:34)
[2022-05-23] MEDS: DEXMEDETOMIDINE HCL 400 MCG in SODIUM CHLORIDE 0.9% 96 ML IV PRN ×2 (06:13→09:30)
[2022-05-23 08:00] VITALS: BP 130/89
[2022-05-23] MEDS ORDERED: ROCURONIUM BROMIDE 10 MG/ML 5 ML VIAL IVP ONE (08:45)
[2022-05-23] MEDS: DOCUSATE SODIUM 100 MG/10 ML LIQUID UDCUP GT SCH ×2 (09:00→21:00)
[2022-05-23] MEDS: HydrALAZINE HCL 20 MG/ML VIAL IVP PRN (09:04)
[2022-05-23] MEDS: METOCLOPRAMIDE HCL 5 MG/ML 2 ML VIAL IVP SCH ×2 (09:05→21:00)
[2022-05-23] MEDS: CARVEDILOL 3.125 MG TABLET NG SCH ×2 (09:05→21:31)
[2022-05-23] MEDS: ATORVASTATIN CALCIUM 40 MG TABLET PO SCH (09:05)
[2022-05-23] MEDS: ETHYL ALCOHOL 62% ANTISEPTIC NASAL SANITIZER 0.6 ML AMPUL NASAL SCH ×2 (09:06→21:31)
[2022-05-23] MEDS: AmLODIPine BESYLATE 10 MG TABLET GT SCH (09:10)
[2022-05-23] MEDS: HydrALAZINE HCL 25 MG TABLET NG SCH ×4 (09:10→21:00)
[2022-05-23] MEDS: FentaNYL CIT 1000MCG/0.9% NACL 100 ML IV PRN ×3 (09:32→22:52)
[2022-05-23 12:00] VITALS: BP 133/90
[2022-05-23 12:06] LABS: GLUCOSE,POINT OF CARE 123 MG/DL (70-110)
[2022-05-23 16:00] VITALS: BP 144/97
[2022-05-23 20:00] VITALS: BP 110/74
[2022-05-24] VITALS: BP 102/68
[2022-05-24] MEDS: PANTOPRAZOLE SODIUM 80 MG in SODIUM CHLORIDE 0.9% 100 ML IV SCH ×3 (02:54→22:00)
[2022-05-24] MEDS: PROPOFOL 1000 MG/ISO-OSM 100 ML IV PRN ×4 (02:55→21:20)
[2022-05-24 04:00] VITALS: BP 133/97
[2022-05-24] MEDS: FentaNYL CIT 1000MCG/0.9% NACL 100 ML IV PRN ×4 (04:39→22:00)
[2022-05-24 08:00] VITALS: BP 127/85
[2022-05-24] MEDS: ATORVASTATIN CALCIUM 40 MG TABLET PO SCH (08:32)
[2022-05-24] MEDS: CARVEDILOL 3.125 MG TABLET NG SCH ×2 (08:32→20:02)
[2022-05-24] MEDS: DOCUSATE SODIUM 100 MG/10 ML LIQUID UDCUP GT SCH ×2 (08:33→20:01)
[2022-05-24] MEDS: METOCLOPRAMIDE HCL 5 MG/ML 2 ML VIAL IVP SCH ×2 (08:33→20:01)
[2022-05-24] MEDS: HydrALAZINE HCL 25 MG TABLET NG SCH ×4 (08:33→20:01)
[2022-05-24] MEDS: AmLODIPine BESYLATE 10 MG TABLET GT SCH (08:33)
[2022-05-24] MEDS: ETHYL ALCOHOL 62% ANTISEPTIC NASAL SANITIZER 0.6 ML AMPUL NASAL SCH ×2 (08:36→20:01)
[2022-05-24] MEDS: MetroNIDAZOLE 500 MG TABLET PO SCH ×3 (08:48→20:02)
[2022-05-24 12:00] VITALS: BP 116/77
[2022-05-24 16:00] VITALS: BP 108/73
[2022-05-24 20:00] VITALS: BP 129/86
[2022-05-25] VITALS: BP 124/85
[2022-05-25 04:00] VITALS: BP 122/83
[2022-05-25] MEDS: FentaNYL CIT 1000MCG/0.9% NACL 100 ML IV PRN ×3 (05:38→16:11)
[2022-05-25] MEDS: PANTOPRAZOLE SODIUM 80 MG in SODIUM CHLORIDE 0.9% 100 ML IV SCH ×2 (06:18→16:10)
[2022-05-25] MEDS: PROPOFOL 1000 MG/ISO-OSM 100 ML IV PRN ×2 (07:18→15:45)
[2022-05-25 08:00] VITALS: BP 110/73
[2022-05-25 09:01] LABS: BASOPHILS % (AUTO) 0.6 % (0.0-2.0); EOSINOPHILS % (AUTO) 1.5 % (1.0-6.0); HEMATOCRIT 21.1 % (36-46); HEMOGLOBIN 7.4 g/dL (12.0-16.0); LYMPHOCYTES # (AUTO) 0.8 K/uL (1.0-4.8); LYMPHOCYTES % (AUTO) 8.8 % (22.0-44.0); MEAN CORPUSCULAR HGB CONC 34.9 G/dL (31.0-37.0); MEAN CORPUSCULAR VOLUME 89 fL (80-100); MONOCYTES % (AUTO) 11.1 % (2.0-9.0); NEUTROPHILS # (AUTO) 6.9 K/uL (1.8-7.7); PLATELET COUNT (AUTO) 293 K/uL (150-450); RED BLOOD CELL COUNT(AUTO) 2.38 MIL/uL (4.00-5.20); RED CELL DISTRIBUTION WIDTH 13.8 % (11.5-14.5)
[2022-05-25 09:16] LABS: ALANINE AMINOTRANSFERASE 32 U/L (12-78); ALBUMIN 2.2 g/dL (3.4-5.0); ALKALINE PHOSPHATASE 69 U/L (46-116); ANION GAP 11 mmol/L (8-16); ASPARTATE AMINOTRANSFERASE 26 U/L (15-37); BILIRUBIN,TOTAL 0.3 mg/dL (0.1-1.0); CALCIUM, TOTAL 8.4 mg/dL (8.8-10.5); CARBON DIOXIDE 22 mmol/L (22-29); CHLORIDE 105 mmol/L (98-107); CREATININE 0.91 mg/dL (0.60-1.30); GLUCOSE,RANDOM 131 mg/dL (70-110); POTASSIUM 3.7 mmol/L (3.5-5.1); SODIUM SERUM 138 mmol/L (136-145); TOTAL PROTEIN, SERUM 6.2 g/dL (6.4-8.2); UREA NITROGEN, BLOOD 26 mg/dL (7-18)
[2022-05-25 09:17] LABS: GLOMERULAR FILTR. RATE CALC > 60 mL/min (>60)
[2022-05-25] MEDS: ATORVASTATIN CALCIUM 40 MG TABLET PO SCH (09:25)
[2022-05-25] MEDS: AmLODIPine BESYLATE 10 MG TABLET GT SCH (09:25)
[2022-05-25] MEDS: MetroNIDAZOLE 500 MG TABLET PO SCH (09:25)
[2022-05-25] MEDS: ETHYL ALCOHOL 62% ANTISEPTIC NASAL SANITIZER 0.6 ML AMPUL NASAL SCH ×2 (09:25→20:50)
[2022-05-25] MEDS: CARVEDILOL 3.125 MG TABLET NG SCH ×2 (09:25→20:50)
[2022-05-25] MEDS: METOCLOPRAMIDE HCL 5 MG/ML 2 ML VIAL IVP SCH ×2 (09:28→20:50)
[2022-05-25] MEDS: DOCUSATE SODIUM 100 MG/10 ML LIQUID UDCUP GT SCH ×2 (09:36→20:50)
[2022-05-25] MEDS: HydrALAZINE HCL 25 MG TABLET NG SCH ×4 (09:36→20:53)
[2022-05-25 12:00] VITALS: BP 119/74
[2022-05-25 16:00] VITALS: BP 122/70
[2022-05-25 20:00] VITALS: BP 131/78
[2022-05-25] MEDS: HydrALAZINE HCL 20 MG/ML VIAL IVP PRN (20:50)
[2022-05-26] VITALS: BP 106/68
[2022-05-26] MEDS: PROPOFOL 1000 MG/ISO-OSM 100 ML IV PRN ×3 (00:58→17:36)
[2022-05-26] MEDS: PANTOPRAZOLE SODIUM 80 MG in SODIUM CHLORIDE 0.9% 100 ML IV SCH ×2 (01:52→12:17)
[2022-05-26] MEDS: FentaNYL CIT 1000MCG/0.9% NACL 100 ML IV PRN ×3 (01:52→19:53)
[2022-05-26 04:00] VITALS: BP 112/66
[2022-05-26 08:00] VITALS: BP 161/96
[2022-05-26 08:13] LABS: BASOPHILS % (AUTO) 0.4 % (0.0-2.0); EOSINOPHILS % (AUTO) 0.3 % (1.0-6.0); HEMOGLOBIN 7.3 g/dL (12.0-16.0); LYMPHOCYTES # (AUTO) 0.8 K/uL (1.0-4.8); LYMPHOCYTES % (AUTO) 7.3 % (22.0-44.0); MEAN CORPUSCULAR VOLUME 89 fL (80-100); MONOCYTES # (AUTO) 1.2 K/uL (0.1-1.0); MONOCYTES % (AUTO) 11.2 % (2.0-9.0); NEUTROPHILS # (AUTO) 8.4 K/uL (1.8-7.7); NEUTROPHILS % (AUTO) 80.8 % (40.0-70.0); PLATELET COUNT (AUTO) 308 K/uL (150-450); RED BLOOD CELL COUNT(AUTO) 2.34 MIL/uL (4.00-5.20); RED CELL DISTRIBUTION WIDTH 13.9 % (11.5-14.5)
[2022-05-26 08:19] LABS: HEMATOCRIT 20.8 % (36-46)
[2022-05-26 08:21] LABS: ANION GAP 10 mmol/L (8-16); CALCIUM, TOTAL 8.8 mg/dL (8.8-10.5); CARBON DIOXIDE 21 mmol/L (22-29); CHLORIDE 104 mmol/L (98-107); CREATININE 1.02 mg/dL (0.60-1.30); GLUCOSE,RANDOM 158 mg/dL (70-110); POTASSIUM 3.7 mmol/L (3.5-5.1); SODIUM SERUM 135 mmol/L (136-145); UREA NITROGEN, BLOOD 19 mg/dL (7-18)
[2022-05-26 08:24] LABS: GLOMERULAR FILTR. RATE CALC > 60 mL/min (>60)
[2022-05-26] MEDS: AmLODIPine BESYLATE 10 MG TABLET GT SCH (08:31)
[2022-05-26] MEDS: METOCLOPRAMIDE HCL 5 MG/ML 2 ML VIAL IVP SCH ×2 (08:31→21:04)
[2022-05-26] MEDS: CARVEDILOL 3.125 MG TABLET NG SCH ×2 (08:32→21:03)
[2022-05-26] MEDS: ETHYL ALCOHOL 62% ANTISEPTIC NASAL SANITIZER 0.6 ML AMPUL NASAL SCH ×2 (08:32→21:02)
[2022-05-26] MEDS: DOCUSATE SODIUM 100 MG/10 ML LIQUID UDCUP GT SCH ×2 (08:32→21:02)
[2022-05-26] MEDS: HydrALAZINE HCL 25 MG TABLET NG SCH ×4 (08:32→21:03)
[2022-05-26] MEDS: ATORVASTATIN CALCIUM 40 MG TABLET PO SCH (08:39)
[2022-05-26] MEDS: ACETAMINOPHEN 650 MG/20.3 ML SOLUTION UDCUP GT PRN ×2 (08:40→21:08)
[2022-05-26 12:00] VITALS: BP 116/70
[2022-05-26 16:00] VITALS: BP 129/77
[2022-05-26 20:00] VITALS: BP 133/85
[2022-05-26] MEDS: PANTOPRAZOLE SODIUM 40 MG/VIAL IVP SCH (21:03)
[2022-05-27] VITALS: BP 146/100
[2022-05-27] MEDS: PROPOFOL 1000 MG/ISO-OSM 100 ML IV PRN ×2 (02:56→08:28)
[2022-05-27 04:00] VITALS: BP 132/84
[2022-05-27 08:00] VITALS: BP 153/98
[2022-05-27] MEDS: METOCLOPRAMIDE HCL 5 MG/ML 2 ML VIAL IVP SCH ×2 (08:04→21:36)
[2022-05-27] MEDS: ETHYL ALCOHOL 62% ANTISEPTIC NASAL SANITIZER 0.6 ML AMPUL NASAL SCH ×2 (08:04→21:36)
[2022-05-27] MEDS: CARVEDILOL 3.125 MG TABLET NG SCH ×2 (08:04→21:36)
[2022-05-27] MEDS: HydrALAZINE HCL 25 MG TABLET NG SCH ×4 (08:04→21:00)
[2022-05-27] MEDS: PANTOPRAZOLE SODIUM 40 MG/VIAL IVP SCH ×2 (08:04→21:36)
[2022-05-27] MEDS: DOCUSATE SODIUM 100 MG/10 ML LIQUID UDCUP GT SCH ×2 (08:04→21:36)
[2022-05-27] MEDS: AmLODIPine BESYLATE 10 MG TABLET GT SCH (08:04)
[2022-05-27] MEDS: POVIDONE-IODINE 10% 120 ML SOLUTION TP SCH (08:05)
[2022-05-27] MEDS: HYDROGEN PEROXIDE 473 ML SOLUTION TP SCH (08:05)
[2022-05-27] MEDS: ATORVASTATIN CALCIUM 40 MG TABLET PO SCH (08:08)
[2022-05-27] MEDS: FentaNYL CIT 1000MCG/0.9% NACL 100 ML IV PRN (08:29)
[2022-05-27 12:00] VITALS: BP 136/88
[2022-05-27 16:00] VITALS: BP 129/86
[2022-05-27 20:00] VITALS: BP 121/79
[2022-05-27 21:14] LABS: BASOPHILS % (AUTO) 0.4 % (0.0-2.0); EOSINOPHILS % (AUTO) 0.4 % (1.0-6.0); LYMPHOCYTES # (AUTO) 1.1 K/uL (1.0-4.8); LYMPHOCYTES % (AUTO) 10.9 % (22.0-44.0); MEAN CORPUSCULAR HEMOGLOBIN 31.1 pg (26.0-34.0); MEAN CORPUSCULAR VOLUME 89 fL (80-100); MONOCYTES % (AUTO) 9.5 % (2.0-9.0); NEUTROPHILS # (AUTO) 8.3 K/uL (1.8-7.7); NEUTROPHILS % (AUTO) 78.8 % (40.0-70.0); PLATELET COUNT (AUTO) 347 K/uL (150-450); RED BLOOD CELL COUNT(AUTO) 2.24 MIL/uL (4.00-5.20); RED CELL DISTRIBUTION WIDTH 13.7 % (11.5-14.5)
[2022-05-27 21:17] LABS: ALANINE AMINOTRANSFERASE 22 U/L (12-78); ALBUMIN 2.2 g/dL (3.4-5.0); ALKALINE PHOSPHATASE 85 U/L (46-116); ANION GAP 10 mmol/L (8-16); ASPARTATE AMINOTRANSFERASE 18 U/L (15-37); BILIRUBIN,TOTAL 0.3 mg/dL (0.1-1.0); CALCIUM, TOTAL 9.1 mg/dL (8.8-10.5); CARBON DIOXIDE 24 mmol/L (22-29); CHLORIDE 104 mmol/L (98-107); CREATININE 0.89 mg/dL (0.60-1.30); GLUCOSE,RANDOM 169 mg/dL (70-110); HEMATOCRIT 19.9 % (36-46); POTASSIUM 3.5 mmol/L (3.5-5.1); SODIUM SERUM 138 mmol/L (136-145); TOTAL PROTEIN, SERUM 7.1 g/dL (6.4-8.2); UREA NITROGEN, BLOOD 20 mg/dL (7-18)
[2022-05-27 21:18] LABS: GLOMERULAR FILTR. RATE CALC > 60 mL/min (>60)
[2022-05-28] VITALS: BP 153/98
[2022-05-28] MEDS: PROPOFOL 1000 MG/ISO-OSM 100 ML IV PRN ×2 (01:00→11:39)
[2022-05-28 04:00] VITALS: BP 144/92
[2022-05-28 05:49] LABS: BASOPHILS % (AUTO) 0.4 % (0.0-2.0); EOSINOPHILS % (AUTO) 0.6 % (1.0-6.0); LYMPHOCYTES # (AUTO) 1.6 K/uL (1.0-4.8); LYMPHOCYTES % (AUTO) 13.7 % (22.0-44.0); MEAN CORPUSCULAR HEMOGLOBIN 30.2 pg (26.0-34.0); MEAN CORPUSCULAR HGB CONC 34.3 G/dL (31.0-37.0); MEAN CORPUSCULAR VOLUME 88 fL (80-100); MONOCYTES # (AUTO) 1.2 K/uL (0.1-1.0); MONOCYTES % (AUTO) 10.8 % (2.0-9.0); NEUTROPHILS # (AUTO) 8.5 K/uL (1.8-7.7); NEUTROPHILS % (AUTO) 74.5 % (40.0-70.0); PLATELET COUNT (AUTO) 366 K/uL (150-450); RED BLOOD CELL COUNT(AUTO) 2.31 MIL/uL (4.00-5.20); RED CELL DISTRIBUTION WIDTH 13.9 % (11.5-14.5)
[2022-05-28 05:54] LABS: ALANINE AMINOTRANSFERASE 21 U/L (12-78); ALBUMIN 2.3 g/dL (3.4-5.0); ALKALINE PHOSPHATASE 87 U/L (46-116); ANION GAP 11 mmol/L (8-16); ASPARTATE AMINOTRANSFERASE 18 U/L (15-37); BILIRUBIN,TOTAL 0.3 mg/dL (0.1-1.0); CALCIUM, TOTAL 9.4 mg/dL (8.8-10.5); CARBON DIOXIDE 24 mmol/L (22-29); CHLORIDE 104 mmol/L (98-107); CREATININE 0.93 mg/dL (0.60-1.30); GLOMERULAR FILTR. RATE CALC > 60 mL/min (>60); GLUCOSE,RANDOM 176 mg/dL (70-110); POTASSIUM 3.3 mmol/L (3.5-5.1); SODIUM SERUM 139 mmol/L (136-145); TOTAL PROTEIN, SERUM 7.3 g/dL (6.4-8.2); UREA NITROGEN, BLOOD 21 mg/dL (7-18)
[2022-05-28 06:08] LABS: HEMATOCRIT 20.3 % (36-46)
[2022-05-28 08:00] VITALS: BP 120/82
[2022-05-28] MEDS: AmLODIPine BESYLATE 10 MG TABLET GT SCH (08:03)
[2022-05-28] MEDS: PANTOPRAZOLE SODIUM 40 MG/VIAL IVP SCH ×2 (08:03→20:25)
[2022-05-28] MEDS: DOCUSATE SODIUM 100 MG/10 ML LIQUID UDCUP GT SCH ×2 (08:03→20:25)
[2022-05-28] MEDS: METOCLOPRAMIDE HCL 5 MG/ML 2 ML VIAL IVP SCH ×2 (08:04→20:25)
[2022-05-28] MEDS: HYDROGEN PEROXIDE 473 ML SOLUTION TP SCH (08:04)
[2022-05-28] MEDS: ETHYL ALCOHOL 62% ANTISEPTIC NASAL SANITIZER 0.6 ML AMPUL NASAL SCH ×2 (08:04→20:25)
[2022-05-28] MEDS: HydrALAZINE HCL 25 MG TABLET NG SCH ×4 (08:04→20:25)
[2022-05-28] MEDS: POVIDONE-IODINE 10% 120 ML SOLUTION TP SCH (08:04)
[2022-05-28] MEDS: CARVEDILOL 3.125 MG TABLET NG SCH ×2 (08:04→20:25)
[2022-05-28] MEDS: ATORVASTATIN CALCIUM 40 MG TABLET PO SCH (08:04)
[2022-05-28] MEDS: FentaNYL CIT 1000MCG/0.9% NACL 100 ML IV PRN (09:21)
[2022-05-28 12:00] VITALS: BP 130/78
[2022-05-28] MEDS ORDERED: POTASSIUM CHLORIDE 10% 40 MEQ/30 ML LIQUID UDCUP PEG ONE (14:00)
[2022-05-28 16:00] VITALS: BP 136/89
[2022-05-28 20:00] VITALS: BP 148/69
[2022-05-29] VITALS (8 sets, daily range): BP systolic 124–171; BP diastolic 81–112
[2022-05-29 05:39] LABS: BASOPHILS % (AUTO) 0.4 % (0.0-2.0); EOSINOPHILS % (AUTO) 0.9 % (1.0-6.0); LYMPHOCYTES # (AUTO) 2.1 K/uL (1.0-4.8); LYMPHOCYTES % (AUTO) 19.2 % (22.0-44.0); MEAN CORPUSCULAR HEMOGLOBIN 30.5 pg (26.0-34.0); MEAN CORPUSCULAR HGB CONC 34.7 G/dL (31.0-37.0); MEAN CORPUSCULAR VOLUME 88 fL (80-100); MONOCYTES % (AUTO) 9.4 % (2.0-9.0); NEUTROPHILS # (AUTO) 7.7 K/uL (1.8-7.7); NEUTROPHILS % (AUTO) 70.1 % (40.0-70.0); PLATELET COUNT (AUTO) 379 K/uL (150-450); RED BLOOD CELL COUNT(AUTO) 2.21 MIL/uL (4.00-5.20)
[2022-05-29 05:41] LABS: ALANINE AMINOTRANSFERASE 23 U/L (12-78); ALBUMIN 2.2 g/dL (3.4-5.0); ALKALINE PHOSPHATASE 90 U/L (46-116); ANION GAP 7 mmol/L (8-16); ASPARTATE AMINOTRANSFERASE 17 U/L (15-37); BILIRUBIN,TOTAL 0.2 mg/dL (0.1-1.0); CALCIUM, TOTAL 9.4 mg/dL (8.8-10.5); CARBON DIOXIDE 27 mmol/L (22-29); CHLORIDE 107 mmol/L (98-107); CREATININE 1.01 mg/dL (0.60-1.30); GLUCOSE,RANDOM 211 mg/dL (70-110); POTASSIUM 3.7 mmol/L (3.5-5.1); SODIUM SERUM 141 mmol/L (136-145); TOTAL PROTEIN, SERUM 7.4 g/dL (6.4-8.2); UREA NITROGEN, BLOOD 29 mg/dL (7-18)
[2022-05-29 05:42] LABS: GLOMERULAR FILTR. RATE CALC > 60 mL/min (>60)
[2022-05-29 05:49] LABS: HEMOGLOBIN 6.8 g/dL (12.0-16.0)
[2022-05-29 05:50] LABS: HEMATOCRIT 19.5 % (36-46)
[2022-05-29] MEDS ORDERED: SODIUM CHLORIDE 0.9% 250 ML IV ONE (07:24)
[2022-05-29] MEDS: HydrALAZINE HCL 25 MG TABLET NG SCH ×4 (08:18→20:35)
[2022-05-29] MEDS: METOCLOPRAMIDE HCL 5 MG/ML 2 ML VIAL IVP SCH ×2 (08:18→20:35)
[2022-05-29] MEDS: PANTOPRAZOLE SODIUM 40 MG/VIAL IVP SCH ×2 (08:18→20:35)
[2022-05-29] MEDS: AmLODIPine BESYLATE 10 MG TABLET GT SCH (08:18)
[2022-05-29] MEDS: ATORVASTATIN CALCIUM 40 MG TABLET PO SCH (08:18)
[2022-05-29] MEDS: CARVEDILOL 3.125 MG TABLET NG SCH ×2 (08:18→20:35)
[2022-05-29] MEDS: DOCUSATE SODIUM 100 MG/10 ML LIQUID UDCUP GT SCH ×2 (08:18→20:34)
[2022-05-29] MEDS: POVIDONE-IODINE 10% 120 ML SOLUTION TP SCH (08:18)
[2022-05-29] MEDS: HYDROGEN PEROXIDE 473 ML SOLUTION TP SCH (08:18)
[2022-05-29] MEDS: ETHYL ALCOHOL 62% ANTISEPTIC NASAL SANITIZER 0.6 ML AMPUL NASAL SCH ×2 (09:23→20:34)
[2022-05-29] MEDS: HydrALAZINE HCL 20 MG/ML VIAL IVP PRN (09:41)
[2022-05-29] MEDS ORDERED: LORazepam 2 MG/ML VIAL IVP PRN (12:15)
[2022-05-29] MEDS ORDERED: FentaNYL CITRATE PF 100 MCG/2 ML VIAL IVP PRN (12:15)
[2022-05-30] VITALS (8 sets, daily range): BP systolic 133–170; BP diastolic 87–118
[2022-05-30 05:29] LABS: BASOPHILS % (AUTO) 0.5 % (0.0-2.0); HEMATOCRIT 24.4 % (36-46); HEMOGLOBIN 8.4 g/dL (12.0-16.0); LYMPHOCYTES # (AUTO) 2.2 K/uL (1.0-4.8); LYMPHOCYTES % (AUTO) 18.8 % (22.0-44.0); MEAN CORPUSCULAR HEMOGLOBIN 29.7 pg (26.0-34.0); MEAN CORPUSCULAR HGB CONC 34.2 G/dL (31.0-37.0); MEAN CORPUSCULAR VOLUME 87 fL (80-100); MONOCYTES % (AUTO) 8.4 % (2.0-9.0); NEUTROPHILS # (AUTO) 8.2 K/uL (1.8-7.7); NEUTROPHILS % (AUTO) 71.3 % (40.0-70.0); PLATELET COUNT (AUTO) 408 K/uL (150-450); RED BLOOD CELL COUNT(AUTO) 2.82 MIL/uL (4.00-5.20); RED CELL DISTRIBUTION WIDTH 14.6 % (11.5-14.5)
[2022-05-30 05:37] LABS: ALANINE AMINOTRANSFERASE 30 U/L (12-78); ALBUMIN 2.3 g/dL (3.4-5.0); ALKALINE PHOSPHATASE 95 U/L (46-116); ANION GAP 7 mmol/L (8-16); ASPARTATE AMINOTRANSFERASE 23 U/L (15-37); BILIRUBIN,TOTAL 0.3 mg/dL (0.1-1.0); CALCIUM, TOTAL 9.3 mg/dL (8.8-10.5); CARBON DIOXIDE 27 mmol/L (22-29); CHLORIDE 108 mmol/L (98-107); CREATININE 0.93 mg/dL (0.60-1.30); GLUCOSE,RANDOM 243 mg/dL (70-110); POTASSIUM 3.7 mmol/L (3.5-5.1); SODIUM SERUM 142 mmol/L (136-145); TOTAL PROTEIN, SERUM 7.5 g/dL (6.4-8.2); UREA NITROGEN, BLOOD 28 mg/dL (7-18)
[2022-05-30 05:45] LABS: GLOMERULAR FILTR. RATE CALC > 60 mL/min (>60)
[2022-05-30] MEDS: PANTOPRAZOLE SODIUM 40 MG/VIAL IVP SCH ×2 (09:00→20:17)
[2022-05-30] MEDS: CARVEDILOL 3.125 MG TABLET NG SCH ×3 (09:00→23:24)
[2022-05-30] MEDS: HYDROGEN PEROXIDE 473 ML SOLUTION TP SCH (09:00)
[2022-05-30] MEDS: DOCUSATE SODIUM 100 MG/10 ML LIQUID UDCUP GT SCH ×2 (09:00→20:17)
[2022-05-30] MEDS: HydrALAZINE HCL 25 MG TABLET NG SCH ×5 (09:00→23:24)
[2022-05-30] MEDS: AmLODIPine BESYLATE 10 MG TABLET GT SCH (09:00)
[2022-05-30] MEDS: POVIDONE-IODINE 10% 120 ML SOLUTION TP SCH (09:00)
[2022-05-30] MEDS: METOCLOPRAMIDE HCL 5 MG/ML 2 ML VIAL IVP SCH ×2 (09:00→20:17)
[2022-05-30] MEDS: ATORVASTATIN CALCIUM 40 MG TABLET PO SCH (09:00)
[2022-05-30] MEDS: ETHYL ALCOHOL 62% ANTISEPTIC NASAL SANITIZER 0.6 ML AMPUL NASAL SCH ×2 (09:00→20:17)
[2022-05-30 18:43] LABS: APPEARANCE,URINE HAZY (CLEAR); BILIRUBIN,URINE NEGATIVE (NEGATIVE); GLUCOSE, URINE (UA) TRACE mg/dL (NEGATIVE); KETONES,URINE NEGATIVE (NEGATIVE); LEUKOCYTE ESTERASE ,URINE LARGE (NEGATIVE); NITRATE,URINE NEGATIVE (NEGATIVE); OCCULT BLOOD,URINE TRACE (NEGATIVE); PROTEIN,URINE 30-70 mg/dL (NEGATIVE); SPECIFIC GRAVITIY, URINE 1.018 (1.003-1.030)
[2022-05-30 18:59] LABS: BACTERIA,URINE None Seen /HPF (None Seen); SQUAMOUS EPITHELIAL CELL,UR Rare /LPF (None Seen); YEAST,URINE Many /HPF (None Seen)
[2022-05-30] MEDS ORDERED: SODIUM CHLORIDE 0.9% 500 ML IV ONE (21:45)
[2022-05-30] MEDS ORDERED: SODIUM CHLORIDE 0.9% 1,000 ML ONE (22:08)
[2022-05-30] MEDS: ACETAMINOPHEN 650 MG/20.3 ML SOLUTION UDCUP GT PRN (23:24)
[2022-05-30] MEDS ORDERED: DEXTROSE 50%-WATER 25 GM/50 ML SYRINGE IVP PRN (23:45)
[2022-05-30] MEDS: INSULIN REGULAR, HUMAN 100 UNITS/ML SQ PRN (23:50)
[2022-05-31] VITALS: BP 170/111
[2022-05-31 04:00] VITALS: BP 132/97
[2022-05-31] MEDS: INSULIN REGULAR, HUMAN 100 UNITS/ML SQ PRN (04:10)
[2022-05-31 04:16] LABS: GLUCOSE,POINT OF CARE 191 MG/DL (70-110)
[2022-05-31 06:07] LABS: BASOPHILS % (AUTO) 0.5 % (0.0-2.0); EOSINOPHILS % (AUTO) 0.8 % (1.0-6.0); HEMOGLOBIN 8.9 g/dL (12.0-16.0); LYMPHOCYTES # (AUTO) 2.3 K/uL (1.0-4.8); LYMPHOCYTES % (AUTO) 14.7 % (22.0-44.0); MEAN CORPUSCULAR HEMOGLOBIN 29.6 pg (26.0-34.0); MEAN CORPUSCULAR HGB CONC 34.3 G/dL (31.0-37.0); MEAN CORPUSCULAR VOLUME 86 fL (80-100); MONOCYTES # (AUTO) 1.2 K/uL (0.1-1.0); MONOCYTES % (AUTO) 8.1 % (2.0-9.0); NEUTROPHILS # (AUTO) 11.6 K/uL (1.8-7.7); NEUTROPHILS % (AUTO) 75.9 % (40.0-70.0); PLATELET COUNT (AUTO) 490 K/uL (150-450); RED BLOOD CELL COUNT(AUTO) 3.02 MIL/uL (4.00-5.20); RED CELL DISTRIBUTION WIDTH 14.8 % (11.5-14.5)
[2022-05-31 06:57] LABS: ANION GAP 14 mmol/L (8-16); CALCIUM, TOTAL 10.1 mg/dL (8.8-10.5); CARBON DIOXIDE 25 mmol/L (22-29); CHLORIDE 110 mmol/L (98-107); CREATININE 1.03 mg/dL (0.60-1.30); GLUCOSE,RANDOM 215 mg/dL (70-110); POTASSIUM 3.7 mmol/L (3.5-5.1); SODIUM SERUM 149 mmol/L (136-145); UREA NITROGEN, BLOOD 29 mg/dL (7-18)
[2022-05-31 07:42] LABS: GLOMERULAR FILTR. RATE CALC > 60 mL/min (>60)
[2022-05-31 08:00] VITALS: BP 139/94
[2022-05-31 08:26] LABS: GLUCOSE,POINT OF CARE 214 MG/DL (70-110)
[2022-05-31] MEDS: PANTOPRAZOLE SODIUM 40 MG/VIAL IVP SCH (08:27)
[2022-05-31] MEDS: METOCLOPRAMIDE HCL 5 MG/ML 2 ML VIAL IVP SCH (08:27)
[2022-05-31] MEDS: DOCUSATE SODIUM 100 MG/10 ML LIQUID UDCUP GT SCH (08:28)
[2022-05-31] MEDS: ATORVASTATIN CALCIUM 40 MG TABLET PO SCH (08:28)
[2022-05-31] MEDS: AmLODIPine BESYLATE 10 MG TABLET GT SCH (08:28)
[2022-05-31] MEDS: ETHYL ALCOHOL 62% ANTISEPTIC NASAL SANITIZER 0.6 ML AMPUL NASAL SCH (08:28)
[2022-05-31] MEDS: POVIDONE-IODINE 10% 120 ML SOLUTION TP SCH (08:29)
[2022-05-31] MEDS: HYDROGEN PEROXIDE 473 ML SOLUTION TP SCH (08:29)
[2022-05-31] MEDS ORDERED: HydrALAZINE HCL 25 MG TABLET NG SCH (09:00)
[2022-05-31] MEDS ORDERED: CARVEDILOL 3.125 MG TABLET NG SCH (09:00)
== END 2022-05-31 11:20 | DRG 5 ==
LOC: EMS 06:02 → ICU 17:05
PROVIDERS: ADMIT Hospitalist; ATTEND Hospitalist
PROC: 5A1955Z Respiratory Ventilation, Greater than 96 Consecutive Hours (ICD-10-PCS; principal; 2022-05-09)
PROC: 0BH17EZ Insertion of Endotracheal Airway into Trachea, Via Natural or Artificial Opening (ICD-10-PCS; 2022-05-09)
PROC: 0DJ08ZZ Inspection of Upper Intestinal Tract, Via Natural or Artificial Opening Endoscopic (ICD-10-PCS; 2022-05-19)
PROC: 0B113F4 Bypass Trachea to Cutaneous with Tracheostomy Device, Percutaneous Approach (ICD-10-PCS; 2022-05-23)
PROC: 0DH63UZ Insertion of Feeding Device into Stomach, Percutaneous Approach (ICD-10-PCS; 2022-05-26)
PROC: 30233N1 Transfusion of Nonautologous Red Blood Cells into Peripheral Vein, Percutaneous Approach (ICD-10-PCS; 2022-05-29)
DX: J96.01 Acute respiratory failure with hypoxia (principal); I63.9 Cerebral infarction, unspecified; J69.0 Pneumonitis due to inhalation of food and vomit; K22.11 Ulcer of esophagus with bleeding; N17.9 Acute kidney failure, unspecified; G83.5 Locked-in state; K29.71 Gastritis, unspecified, with bleeding; E83.39 Other disorders of phosphorus metabolism; G45.0 Vertebro-basilar artery syndrome; D62 Acute posthemorrhagic anemia; Z20.822 Contact with and (suspected) exposure to COVID-19; E11.9 Type 2 diabetes mellitus without complications; F15.90 Other stimulant use, unspecified, uncomplicated; I10 Essential (primary) hypertension; E83.42 Hypomagnesemia; E87.6 Hypokalemia; K44.9 Diaphragmatic hernia without obstruction or gangrene; K31.89 Other diseases of stomach and duodenum; F19.10 Other psychoactive substance abuse, uncomplicated; K94.23 Gastrostomy malfunction; H54.61 Unqualified visual loss, right eye, normal vision left eye; F14.129 Cocaine abuse with intoxication, unspecified; I16.1 Hypertensive emergency; R13.10 Dysphagia, unspecified; Z87.820 Personal history of traumatic brain injury; Z99.11 Dependence on respirator [ventilator] status; Z87.891 Personal history of nicotine dependence
CPT/HCPCS: 31500; 31624; 36245; 36569; 36600; 70450; 70551; 71045; 74176; 76770; 76937; 80048; 80053; 81001; 81002; 82140; 82805; 82962; 83036; 83605; 83735; 83880; 84100; 84132; 84145; 84484; 85025; 85610; 86850; 86900; 86901; 86923; 87015; 87040; 87070; 87081; 87101; 87206; 87220; 93005; 94002; 94003; 99291; C9113; G0238; G0378; J0360; J0712; J1644; J2405; J2543; J2704; J2765; J3010; J3475; J3480; J3490; J7030; J7040; J7050; J7060; P9016; Q9967; 36415-L1; 36415-TC; 87077